=== PATIENT | female | born 1945 | race Two or more races ===

== ENCOUNTER 2018-05-12 12:29 | Outpatient (CLI) | payer OTHER | END 2018-05-12 12:52 | disposition home or self-care (01) | LOC: RAD 12:29 | DX: Z01.811 Encounter for preprocedural respiratory examination (principal) ==

== ENCOUNTER → 2019-04-22 15:52 | Outpatient (CLI) | payer OTHER | END | disposition home or self-care (01) | LOC: RAD 15:52 | DX: M47.12 Other spondylosis with myelopathy, cervical region (principal) ==

== ENCOUNTER 2020-05-17 14:58 | Outpatient (CLI) | payer OTHER | END 2020-05-17 15:06 | disposition home or self-care (01) | LOC: RAD 14:58 | PROVIDERS: ATTEND Physical Medicine & Rehabilitation Sports Medicine | DX: M17.0 Bilateral primary osteoarthritis of knee (principal) ==

== ENCOUNTER 2020-12-06 14:21 | Outpatient (CLI) | payer OTHER ==
[2020-12-06] MEDS ORDERED: DICLOFENAC POTA50 MG PO (15:02)
== END 2020-12-06 14:37 | disposition home or self-care (01) ==
LOC: RAD 14:21
PROVIDERS: ATTEND Physical Medicine & Rehabilitation
DX: M25.522 Pain in left elbow (principal)

== ENCOUNTER → 2022-02-07 | Outpatient (CLI) | payer OTHER ==
[~2022-02-07] MED LIST: DICLOFENAC POTA50 MG PO
== END | disposition home or self-care (01) ==
LOC: RAD 12:45
DX: J45.909 Unspecified asthma, uncomplicated (principal)

== ENCOUNTER 2022-06-22 09:04 | Outpatient (CLI) | payer OTHER | END 2022-06-22 09:14 | disposition home or self-care (01) | LOC: LAB 09:04 | PROVIDERS: ATTEND Internal Medicine Endocrinology, Diabetes & Metabolism | DX: I11.0 Hypertensive heart disease with heart failure (principal); D53.9 Nutritional anemia, unspecified; N39.0 Urinary tract infection, site not specified; E78.2 Mixed hyperlipidemia; E04.9 Nontoxic goiter, unspecified; E11.9 Type 2 diabetes mellitus without complications; E55.9 Vitamin D deficiency, unspecified ==

== ENCOUNTER 2022-10-29 10:00 | Outpatient (CLI) | payer OTHER | END 2022-10-29 10:09 | disposition home or self-care (01) | LOC: SONOGRAMA 10:00 | PROVIDERS: ATTEND Internal Medicine Cardiovascular Disease | DX: N20.0 Calculus of kidney (principal); K80.20 Calculus of gallbladder without cholecystitis without obstruction ==

== ENCOUNTER 2022-12-13 14:03 | Outpatient (CLI) | payer OTHER | END 2022-12-13 14:12 | disposition home or self-care (01) | LOC: NUCLEAR 14:03 | DX: M81.0 Age-related osteoporosis without current pathological fracture (principal) ==

== ENCOUNTER 2023-07-10 08:48 | Outpatient (CLI) | payer OTHER | END 2023-07-10 08:54 | disposition home or self-care (01) | LOC: SONOGRAMA 08:48 | PROVIDERS: ATTEND Internal Medicine Gastroenterology | DX: R16.2 Hepatomegaly with splenomegaly, not elsewhere classified (principal) ==